=== PATIENT | female | born 1990 | race Hispanic/Latino ===

== ENCOUNTER 2017-09-19 11:41 | Emergency (ER) | payer SELFPAY ==
[2017-09-19 12:19] LABS: #Basophils 0.1 thou/uL (0.0-0.2); #Eosinphils 0.2 thou/uL (0.0-0.7); #Lymphocytes 1.9 thou/uL (1.20-3.40); #Monocytes 0.2 thou/uL (0.11-0.59); #Neutrophils 3.2 thou/uL (1.40-6.50); %Lymphocytes 33.7 % (21.0-51.0); %Monocytes 4.2 % (0.0-10.0); Hematocrit 40.4 % (36.0-47.0); Mean Platelet Volume 6.8 fL (7.4-10.4); Red Blood Cell (RBC) Count 4.23 mill/uL (4.20-5.40); White Blood Cell (WBC) Count 5.5 thou/uL (4.8-10.8)
[2017-09-19 12:44] LABS: ALT (SGPT) 31 U/L (8-55); AST (SGOT) 21 U/L (5-34); Alkaline Phosphatase 53 U/L (40-150); Anion Gap 12 mmol/L (10-20); BUN (Urea Nitrogen) 11 mg/dL (7.0-18.7); Bilirubin, Total 0.5 mg/dL (0.2-1.2); CK (CPK) 69 U/L (29-168); Calc. Creatinine Clearance 0 mL/min (70-130); Calcium 9.4 mg/dL (7.8-10.44); Carbon Dioxide 25 mmol/L (22-29); Chloride 106 mmol/L (98-107); Estimated GFR-MDRD Greater than 90; Globulin 3.1 g/dL (2.4-3.5); Lipase 30 U/L (8-78); Protein, Total 7.4 g/dL (6.0-8.3)
[2017-09-19 12:47] LABS: Troponin I Less than 0.010 ng/mL (< 0.028)
--- NOTE | 2017-09-19 12:56 | RAD ---
PORTABLE CHEST: Date: 09/19/17 HISTORY: Chest pain, palpitations. FINDINGS: Heart size and mediastinum are within normal limits. Lungs are clear of infiltrates. No bony findings . IMPRESSION: No active intrathoracic disease. POS: [id number]
[2017-09-19] MEDS ORDERED: Lidocaine Viscous Sol 2% 15 ml UD Cup ONE (13:02)
[2017-09-19] MEDS ORDERED: Famotidine/PF 20 mg/2ml Vial ONE (13:02)
[2017-09-19] MEDS ORDERED: Milk Of Magnesia 30 ML UDCUP ONE (13:02)
== END 2017-09-19 14:34 | disposition home or self-care (01) ==
LOC: ERS 11:41
DX: F43.9 Reaction to severe stress, unspecified (principal); F41.9 Anxiety disorder, unspecified; F32.9 Major depressive disorder, single episode, unspecified
CPT/HCPCS: 71010; 80053; 82550; 82553; 83690; 84484; 85025; 93005; 96374; S0028